=== PATIENT | female | born 1990 ===

== ENCOUNTER 2020-06-14 22:24 | Emergency (ER) | payer OTHER, MEDICAID ==
[2020-06-14] MEDS ORDERED: ACETAMINOPHEN 325 MG TABLET PO ONE (22:57)
[2020-06-14] MEDS ORDERED: IBUPROFEN 600 MG TABLET PO ONE (22:57)
--- NOTE | 2020-06-14 23:09 | ER Document Report ---
ED General - General Chief Complaint: Flu Symptoms Stated Complaint: FLU LIKE SYMPTOMS WITH FEVER Time Seen by Provider: 06/14/20 22:49 Primary Care Provider: LUCAS COLLINS NP [Primary Care Provider] - Follow up as needed - HPI Notes: Patient is a 29 y/o female who presents with fever and body aches that began at 2 AM this morning. She denies chest pain, shortness of breath, nausea, vomiting, sore throat, abdominal pain and diarrhea. She reports having a sick contact at work who was diagnosed with a viral infection. She has not taking any medication for symptom relief. She is an everyday smoker but denies alcohol use. - Related Data Allergies/Adverse Reactions: morphine Adverse Reaction (Verified 06/14/20 22:43) Past Medical History - General Information source: Patient - Social History Smoking Status: Current Every Day Smoker Frequency of alcohol use: None Drug Abuse: None Family History: Reviewed & Not Pertinent - Only got to talk to you while in the hate hemoglobin he does not how he hates this Review of Systems - Review of Systems Constitutional: See HPI EENT: No symptoms reported Cardiovascular: No symptoms reported Respiratory: No symptoms reported Gastrointestinal: No symptoms reported Genitourinary: No symptoms reported Female Genitourinary: No symptoms reported Musculoskeletal: No symptoms reported Skin: No symptoms reported Hematologic/Lymphatic: No symptoms reported Neurological/Psychological: No symptoms reported Physical Exam - Vital signs Vitals: Temp Pulse Resp BP Pulse Ox 102.4 F H 126 H 17 115/71 100 06/14/20 22:35 06/14/20 22:35 06/14/20 22:35 06/14/20 22:35 06/14/20 22:35 - Notes Notes: PHYSICAL EXAMINATION: VITALS: Vitals reviewed and within normal limits. GENERAL: Well-appearing, well-nourished and in no acute distress. HEAD: Atraumatic, normocephalic. EYES: Pupils equal, round, and reactive to light, extraocular movements intact, sclera anicteric, conjunctiva are normal. ENT: Nares patent. Moist mucous membranes. Oropharynx clear without exudates. LUNGS: Breath sounds clear to auscultation bilaterally and equal. No wheezes rales or rhonchi. HEART: Regular, rate, and rhythm without murmurs. ABDOMEN: Soft, nontender, normoactive bowel sounds. No guarding, no rebound. No masses appreciated. EXTREMITIES: Normal range of motion, no pitting or edema. No cyanosis. NEUROLOGICAL: No focal neurological deficits. Moves all extremities spontaneously and on command. PSYCH: Normal mood, normal affect. SKIN: Warm, Dry, normal turgor, no rashes or lesions noted. Course - Re-evaluation Re-evalutation: Patient is a 29-year-old female who presents with body aches and fever that b sukhdev early this morning. Patient is febrile with a temperature of 102.4 F. Vital signs are otherwise unremarkable. I recommended ordering lab work but patient declined and is requesting flu, strep, and Covid swabs and a work note. Tylenol 975mg and Ibuprofen 600mg ordered. Rapid flu and strep both negative. Symptoms and workup consistent with viral illness. Patient will be discharged home with quarantine instructions until her COVID test has resulted. Patient instructed to drink plenty of fluids and take NSAIDs as needed for fever and pain. Return precautions and follow up instructions given. Patient understands and is in agreement with plan. - Vital Signs Vital signs: Temp Pulse Resp BP Pulse Ox 99.1 F 102 H 17 113/72 98 06/15/20 00:31 06/15/20 00:31 06/15/20 00:31 06/15/20 00:31 06/15/20 00:31 Discharge - Discharge Clinical Impression: Myalgia Fever Qualifiers: Fever type: unspecified Qualified Code(s): R50.9 - Fever, unspecified Condition: Stable Disposition: HOME, SELF-CARE Instructions: COVID-19 Guidance for Persons Under Investigation Additional Instructions: Viral Syndrome The physician has diagnosed a viral infection. Viruses not only cause "colds," but can cause many different symptoms including generalized aching, fever, headache, cough, diarrhea, nausea, vomiting, and fatigue. The treatment, for the most part, is simply relief of symptoms. This means that antibiotics are usually not given. Rest, fluids, pain medications and, occasionally, medication for the specific symptoms that are most bothersome will be prescribed. Use good handwashing to avoid passing the virus to others. Shared toys should be cleaned with disinfectant. Clean the toilets, sinks, and counter surfaces in bathrooms. Launder clothing in hot water. Contact the physician if you develop any new or unusual symptoms such as severe headache, stiff neck, high fever, chest pain, productive cough, or shortness of breath. You should be rechecked if you don't see marked improvement within seven to 10 days. Forms: Return to Work Referrals: LUCAS COLLINS NP [Primary Care Provider] - Follow up as needed
[2020-06-14 23:54] LABS: A TYPE INFLUENZA AG NEGATIVE (NEGATIVE); B INFLUENZA AG NEGATIVE (NEGATIVE)
[2020-06-15 00:45] VITALS: BP 113/72
== END 2020-06-15 00:36 | disposition home or self-care (01) ==
LOC: ER 22:24
DX: M79.10 Myalgia, unspecified site (principal); R50.9 Fever, unspecified; Z88.8 Allergy status to other drugs, medicaments and biological substances; F17.200 Nicotine dependence, unspecified, uncomplicated; Z20.828 Contact with and (suspected) exposure to other viral communicable diseases
CPT/HCPCS: 99283; 87070; 87880; 87635; 87077; 87804; C9803